=== PATIENT | female | born 1960 | race Caucasian/White ===

== ENCOUNTER 2016-06-24 00:19 | Emergency (ER) | payer MEDICAID, MEDICARE ==
[2016-06-24] MEDS ORDERED: FAMOTIDINE 10 MG/ML VIAL IV ONE ×2 (00:31→00:33)
[2016-06-24] MEDS ORDERED: METHYLPREDNISOLONE SOD SUCC/PF 40 MG/ML VIAL IV ONE (00:32)
[2016-06-24] MEDS ORDERED: METHYLPREDNISOLONE SOD SUCC/PF 125 MG/2 ML VIAL ONE (00:33)
[2016-06-24] MEDS ORDERED: METHYLPREDNISOLONE SOD SUCC/PF 125 MG/2 ML VIAL IV ONE (00:36)
--- NOTE | 2016-06-24 01:02 | ERNOTE ---
Integumentary HPI - General Presenting Symptoms: rash Time Seen by Provider: 06/24/16 00:31 Source: patient - Immun/Allergies/Home Medications Immunizations: IMMUNIZATION HX Immunizations Up to Date Yes Allergies/Adverse Reactions: Allergies Allergy/AdvReac Type Severity Reaction Status Date / Time azithromycin Allergy Verified 06/24/16 00:26 ciprofloxacin [From Cipro] Allergy Verified 06/24/16 00:26 ciprofloxacin HCl Allergy Verified 06/24/16 00:26 [From Cipro] Penicillins Allergy Verified 06/24/16 00:26 tetatus Allergy Uncoded 06/24/16 00:26 Home Medications: HOME MEDICATIONS Cyclobenzaprine HCl [Flexeril] 10 mg PO TID PRN 06/24/16 [Last Taken Unknown] Gabapentin 300 mg PO BID 06/24/16 [Last Taken Unknown] Hydrocodone/Acetaminophen [[place] 7.5-325 Tablet] 1 each PO QID PRN 06/24/16 [ Last Taken Unknown] Ranitidine HCl 75 mg PO DAILY 06/24/16 [Last Taken Unknown] - History of Present Illness Narrative: Patient presents for an itchy rash all over her body for 2 hours. She states that she has used a new shampoo. The rash is red generalized and all over and it itches. Patient has taken Benadryl for this problem to no avail. Review of Systems - Review of Systems Constitutional: Present: no symptoms reported Respiratory: Present: no symptoms reported Skin: Present: See HPI, rash - has a red itchy rash all over which began 2 hours ago - Patient's Past Medical History Patient History - Medical: Diabetes Type 2 Patient History - Cardiac/Respiratory: Asthma, COPD Patient History - Cancer: No Hx of Cancer Patient History - Surgical Procedures: Back Surgery, Cholecystectomy, Hysterectomy, Total Knee Replacement - Social History Living Situations: home Smoking Status: Current every day smoker Patient requests Smoking Cessation Consult: No Initiate information on Smoking Cessation: No Alcohol Use: none - Immunizations Immunizations Up to Date: Yes Physical Exam - Physical Exam General Appearance: Present: wd/wn, alert, no apparent distress Ears, Nose, Throat: Present: normal ENT inspection Neck: Present: normal inspection, nontender, full range of motion Respiratory: Present: no respiratory distress, normal breath sounds, no accessory muscle use, chest nontender, lungs clear Cardiovascular/Chest: Present: regular rate, rhythm, no murmur, normal peripheral pulses Skin Exam: Present: other - since has red irritated hives all over to be scratching at despite this examiner urging her not to. No open lesions. ED Progress - Vital Signs Patient's Vital Signs:: I have reviewed the patient's vital signs. Vital Signs: Vital Signs 06/24/16 00:22 Temperature 36.5 C Pulse Rate 90 Respiratory 20 Rate Blood Pressure 162/68 O2 Sat by Pulse 99 Oximetry - Progress/Reassessment Chief Complaint: Rash Plan - Plan Plan: And is having some kind of an hypersensitivity dermatitis to perhaps a new shampoo she was advised to stop and she will be treated with antihistamines and Solu-Medrol Departure Clinical Impression: Hives - Departure Disposition: Home self-care Condition: Good Instructions: Drug Allergy, [id number], Allergies, [id number]
[2016-06-24 01:09] VITALS: BP 156/74
== END 2016-06-24 01:07 | disposition home or self-care (01) ==
LOC: ER 00:19
DX: L50.9 Urticaria, unspecified (principal); Z72.0 Tobacco use